=== PATIENT | female | born 1985 | race Hispanic/Latino ===

== ENCOUNTER 2017-08-17 18:32 | Emergency (ER) | payer BC, MEDICAID, OTHER ==
[2017-08-17] MEDS ORDERED: IBUPROFEN 600 MG TABLET ONE (18:46)
== END 2017-08-17 19:22 | disposition home or self-care (01) ==
LOC: EDH 18:32
DX: S83.421A Sprain of lateral collateral ligament of right knee, initial encounter (principal); X50.1XXA Overexertion from prolonged static or awkward postures, initial encounter; Y93.89 Activity, other specified; Y92.89 Other specified places as the place of occurrence of the external cause; Y99.8 Other external cause status
CPT/HCPCS: 73562